=== PATIENT | female | born 1985 | race American Indian/Alaskan Native ===

== ENCOUNTER 2019-09-08 20:41 | Emergency (ER) | payer MEDICAID ==
[2019-09-08 22:44] VITALS: BP 108/80
[2019-09-09 00:40] LABS: Bacteria,Urine 2+ /HPF (Negative); Bilirubin,Urine NEG (Negative); Blood,Urine NEG (Negative); Color,Urine Yellow (Yellow); Mucus,Urine 3+ /HPF; Protein,Urine <15 mg/dL mg/dL (Negative)
== END 2019-09-09 02:00 | disposition left against medical advice (07) ==
LOC: ED 20:41
DX: N89.8 Other specified noninflammatory disorders of vagina (principal); Z53.21 Procedure and treatment not carried out due to patient leaving prior to being seen by health care provider
CPT/HCPCS: 81001; 87076; 87086; 87186

== ENCOUNTER 2020-02-10 10:08 | Emergency (ER) | payer MEDICAID ==
[2020-02-10 11:03] LABS: Hematocrit 37.3 % (30.3-42.9); Hemoglobin 12.4 gm/dl (10.1-14.3); Mean Corpuscular HGB Conc 33 % (30-34); Mean Corpuscular Volume 98 fl (79-97); Platelet Count 258 K/mm3 (140-440); Red Blood Count 3.79 M/mm3 (3.65-5.03); Red Cell Distribution Width 13.4 % (13.2-15.2)
[2020-02-10 11:15] LABS: Alanine Aminotransferase 8 units/L (7-56); Albumin 3.9 g/dL (3.9-5); BUN/Creatinine Ratio 18; Blood Urea Nitrogen 9 mg/dL (7-17); Calcium 8.4 mg/dL (8.4-10.2); Hemolysis Index 8
[2020-02-10 11:31] LABS: Bilirubin,Urine NEG (Negative); Blood,Urine LG (Negative); Color,Urine Amber (Yellow); Mucus,Urine 3+ /HPF; Protein,Urine <15 mg/dL mg/dL (Negative)
[2020-02-10 11:35] LABS: RBC,Urine > 182.0 /HPF (0.0-6.0)
[2020-02-10 12:04] LABS: Basophils % (Manual) 0 % (0.0-1.8); Large Platelets Few; Platelet Estimate Consistent w Auto; RBC Morphology Normal; Total Cells Counted 100
--- NOTE | 2020-02-10 13:34 | Emergency Department Report ---
ED Female HPI - General Chief complaint: Abdominal Pain Stated complaint: ABD PAIN, BLEEDING Time Seen by Provider: 02/10/20 12:28 Source: patient Mode of arrival: Ambulatory Limitations: No Limitations - History of Present Illness Initial comments: This is a 34-year-old female with no prior medical history who presents to the ED complaining of lower pelvic cramping with vaginal bleeding that started today. Patient states that it feels like a heavy menstrual cycle but she had a menstrual cycle about 2 weeks ago. She denies nausea vomiting or diarrhea or abdominal pain - Related Data Previous Rx's Medication Instructions Recorded Last Taken Type HYDROcodone/APAP 5-325 [[place] 1 each PO Q6HR PRN #14 tablet 03/12/16 Unknown Rx 5/325] Ibuprofen [Motrin 800 MG tab] 800 mg PO Q8HR PRN #20 tablet 03/12/16 Unknown Rx Allergies Allergy/AdvReac Type Severity Reaction Status Date / Time No Known Allergies Allergy Unverified 03/12/16 15:43 ED Review of Systems ROS: Stated complaint: ABD PAIN, BLEEDING Other details as noted in HPI Comment: All other systems reviewed and negative ED Past Medical Hx - Past Medical History Previous Medical History?: No Additional medical history: 1st degree heart block. syncope - Surgical History Past Surgical History?: No - Social History Smoking Status: Never Smoker - Medications Home Medications: Home Medications Medication Instructions Recorded Confirmed Last Taken Type HYDROcodone/APAP 5-325 [[place] 1 each PO Q6HR PRN #14 tablet 03/12/16 Unknown Rx 5/325] Ibuprofen [Motrin 800 MG tab] 800 mg PO Q8HR PRN #20 tablet 03/12/16 Unknown Rx ED Physical Exam - General Limitations: No Limitations General appearance: alert, in no apparent distress - Head Head exam: Present: atraumatic, normocephalic - Eye Eye exam: Present: normal appearance - ENT ENT exam: Present: mucous membranes moist - Neck Neck exam: Present: normal inspection - Respiratory Respiratory exam: Present: normal lung sounds bilaterally. Absent: respiratory distress - Cardiovascular Cardiovascular Exam: Present: regular rate, normal rhythm. Absent: systolic murmur, diastolic murmur, rubs, gallop - GI/Abdominal GI/Abdominal exam: Present: soft, normal bowel sounds - Extremities Exam Extremities exam: Present: normal inspection - Back Exam Back exam: Present: normal inspection - Neurological Exam Neurological exam: Present: alert, oriented X3 - Psychiatric Psychiatric exam: Present: normal affect, normal mood - Skin Skin exam: Present: warm, dry, intact, normal color. Absent: rash ED Course Vital Signs 02/10/20 02/10/20 02/10/20 10:27 14:00 14:17 Temperature 98.5 F 97.8 F Pulse Rate 60 57 L Respiratory 19 17 18 Rate Blood Pressure 115/68 112/73 O2 Sat by Pulse 100 100 99 Oximetry ED Medical Decision Making - Lab Data Result diagrams: 02/10/20 10:36 02/10/20 10:36 Laboratory Last Values WBC 3.2 K/mm3 (4.5-11.0) L 02/10/20 10:36 RBC 3.79 M/mm3 (3.65-5.03) 02/10/20 10:36 Hgb 12.4 gm/dl (10.1-14.3) 02/10/20 10:36 Hct 37.3 % (30.3-42.9) 02/10/20 10:36 MCV 98 fl (79-97) H 02/10/20 10:36 MCH 33 pg (28-32) H 02/10/20 10:36 MCHC 33 % (30-34) 02/10/20 10:36 RDW 13.4 % (13.2-15.2) 02/10/20 10:36 Plt Count 258 K/mm3 (140-440) 02/10/20 10:36 Add Manual Diff Complete 02/10/20 10:36 Total Counted 100 02/10/20 10:36 Seg Neutrophils % Hat Trimmer 02/10/20 10:36 Seg Neuts % (Manual) 30.0 % (40.0-70.0) L 02/10/20 10:36 Band Neutrophils % 0 % 02/10/20 10:36 Lymphocytes % (Manual) 57.0 % (13.4-35.0) H 02/10/20 10:36 Reactive Lymphs % (Man) 1.0 % 02/10/20 10:36 Monocytes % (Manual) 9.0 % (0.0-7.3) H 02/10/20 10:36 Eosinophils % (Manual) 3.0 % (0.0-4.3) 02/10/20 10:36 Basophils % (Manual) 0 % (0.0-1.8) 02/10/20 10:36 Metamyelocytes % 0 % 02/10/20 10:36 Myelocytes % 0 % 02/10/20 10:36 Promyelocytes % 0 % 02/10/20 10:36 Blast Cells % 0 % 02/10/20 10:36 Nucleated RBC % Not Reportable 02/10/20 10:36 Seg Neutrophils # Man 1.0 K/mm3 (1.8-7.7) L 02/10/20 10:36 Band Neutrophils # 0.0 K/mm3 02/10/20 10:36 Lymphocytes # (Manual) 1.8 K/mm3 (1.2-5.4) 02/10/20 10:36 Abs React Lymphs (Man) 0.0 K/mm3 02/10/20 10:36 Monocytes # (Manual) 0.3 K/mm3 (0.0-0.8) 02/10/20 10:36 Eosinophils # (Manual) 0.1 K/mm3 (0.0-0.4) 02/10/20 10:36 Basophils # (Manual) 0.0 K/mm3 (0.0-0.1) 02/10/20 10:36 Metamyelocytes # 0.0 K/mm3 02/10/20 10:36 Myelocytes # 0.0 K/mm3 02/10/20 10:36 Promyelocytes # 0.0 K/mm3 02/10/20 10:36 Blast Cells # 0.0 K/mm3 02/10/20 10:36 WBC Morphology Not Reportable 02/10/20 10:36 Hypersegmented Neuts Not Reportable 02/10/20 10:36 Hyposegmented Neuts Not Reportable 02/10/20 10:36 Hypogranular Neuts Not Reportable 02/10/20 10:36 Smudge Cells Not Reportable 02/10/20 10:36 Toxic Granulation Not Reportable 02/10/20 10:36 Toxic Vacuolation Not Reportable 02/10/20 10:36 Dohle Bodies Not Reportable 02/10/20 10:36 Pelger-Huet Anomaly Not Reportable 02/10/20 10:36 Lydia Rods Not Reportable 02/10/20 10:36 Platelet Estimate Consistent w auto 02/10/20 10:36 Clumped Platelets Not Reportable 02/10/20 10:36 Plt Clumps, EDTA Not Reportable 02/10/20 10:36 Large Platelets Few 02/10/20 10:36 Giant Platelets Not Reportable 02/10/20 10:36 Platelet Satelliting Not Reportable 02/10/20 10:36 Plt Morphology Comment Not Reportable 02/10/20 10:36 RBC Morphology Normal 02/10/20 10:36 Dimorphic RBCs Not Reportable 02/10/20 10:36 Polychromasia Not Reportable 02/10/20 10:36 Hypochromasia Not Reportable 02/10/20 10:36 Poikilocytosis Not Reportable 02/10/20 10:36 Anisocytosis Not Reportable 02/10/20 10:36 Microcytosis Not Reportable 02/10/20 10:36 Macrocytosis Not Reportable 02/10/20 10:36 Spherocytes Not Reportable 02/10/20 10:36 Pappenheimer Bodies Not Reportable 02/10/20 10:36 Sickle Cells Not Reportable 02/10/20 10:36 Target Cells Not Reportable 02/10/20 10:36 Tear Drop Cells Not Reportable 02/10/20 10:36 Ovalocytes Not Reportable 02/10/20 10:36 Helmet Cells Not Reportable 02/10/20 10:36 [place] Bodies Not Reportable 02/10/20 10:36 Norman Rings Not Reportable 02/10/20 10:36 Bertha Cells Not Reportable 02/10/20 10:36 Bite Cells Not Reportable 02/10/20 10:36 Crenated Cell Not Reportable 02/10/20 10:36 Elliptocytes Not Reportable 02/10/20 10:36 Acanthocytes (Spur) Not Reportable 02/10/20 10:36 Rouleaux Not Reportable 02/10/20 10:36 Hemoglobin C Crystals Not Reportable 02/10/20 10:36 Schistocytes Not Reportable 02/10/20 10:36 Malaria parasites Not Reportable 02/10/20 10:36 Anton Bodies Not Reportable 02/10/20 10:36 Hem Pathologist Commnt No 02/10/20 10:36 Sodium 142 mmol/L (137-145) 02/10/20 10:36 Potassium 4.0 mmol/L (3.6-5.0) 02/10/20 10:36 Chloride 105.6 mmol/L (98-107) 02/10/20 10:36 Carbon Dioxide 26 mmol/L (22-30) 02/10/20 10:36 Anion Gap 14 mmol/L 02/10/20 10:36 BUN 9 mg/dL (7-17) 02/10/20 10:36 Creatinine 0.5 mg/dL (0.7-1.2) L 02/10/20 10:36 Estimated GFR > 60 ml/min 02/10/20 10:36 BUN/Creatinine Ratio 18 % 02/10/20 10:36 Glucose 84 mg/dL (65-100) 02/10/20 10:36 Calcium 8.4 mg/dL (8.4-10.2) 02/10/20 10:36 Total Bilirubin 0.40 mg/dL (0.1-1.2) 02/10/20 10:36 AST 15 units/L (5-40) 02/10/20 10:36 ALT 8 units/L (7-56) 02/10/20 10:36 Alkaline Phosphatase 72 units/L (35-129) 02/10/20 10:36 Total Protein 7.0 g/dL (6.3-8.2) 02/10/20 10:36 Albumin 3.9 g/dL (3.9-5) 02/10/20 10:36 Albumin/Globulin Ratio 1.3 % 02/10/20 10:36 Urine Color Nayla (Yellow) 02/10/20 11:13 Urine Turbidity Clear (Clear) 02/10/20 11:13 Urine pH 6.0 (5.0-7.0) 02/10/20 11:13 Ur Specific [place] 1.023 (1.003-1.030) 02/10/20 11:13 Urine Protein <15 mg/dl mg/dL (Negative) 02/10/20 11:13 Urine Glucose (UA) Neg mg/dL (Negative) 02/10/20 11:13 Urine Ketones Neg mg/dL (Negative) 02/10/20 11:13 Urine Blood Lg (Negative) 02/10/20 11:13 Urine Nitrite Neg (Negative) 02/10/20 11:13 Urine Bilirubin Neg (Negative) 02/10/20 11:13 Urine Urobilinogen 4.0 mg/dL (<2.0) 02/10/20 11:13 Ur Leukocyte Esterase Neg (Negative) 02/10/20 11:13 Urine WBC (Auto) 1.0 /HPF (0.0-6.0) 02/10/20 11:13 Urine RBC (Auto) > 182.0 /HPF (0.0-6.0) 02/10/20 11:13 U Epithel Cells (Auto) 1.0 /HPF (0-13.0) 02/10/20 11:13 Urine Mucus 3+ /HPF 02/10/20 11:13 - Medical Decision Making This 34-year-old female presents with bleeding in between cycles. Vital signs are normal, she is in no acute distress All labs are within normal limits. Discussed with patient to follow-up with [facility] Critical care attestation.: If time is entered above; I have spent that time in minutes in the direct care of this critically ill patient, excluding procedure time. ED Disposition Clinical Impression: Menometrorrhagia Disposition: - TO HOME OR SELFCARE Is pt being admited?: No Does the pt Need Aspirin: No Condition: Stable Instructions: Abdominal Pain (ED), Menorrhagia (ED) Additional Instructions: Make sure to follow up with the primary care physician as discussed. Take all your medications as you've been prescribed. If you have any worsening symptoms or develop new symptoms please return to ED immediately. Referrals: AMELIA GAMBLE MD [Primary Care Provider] - 3-5 Days Forms: Work/School Release Form(ED) Time of Disposition: 13:38
[2020-02-10 14:02] VITALS: BP 112/73
== END 2020-02-10 14:08 | disposition home or self-care (01) ==
LOC: ED 10:08
DX: N92.0 Excessive and frequent menstruation with regular cycle (principal); Z79.1 Long term (current) use of non-steroidal anti-inflammatories (NSAID); Z79.899 Other long term (current) drug therapy
CPT/HCPCS: 36415; 80053; 81001; 85007; 85025

== ENCOUNTER 2020-04-21 22:30 | Emergency (ER) | payer MEDICAID ==
[2020-04-22 02:06] VITALS: BP 133/68
== END 2020-04-22 02:10 | disposition left against medical advice (07) ==
LOC: ED 22:30
DX: H57.12 Ocular pain, left eye (principal); Z53.21 Procedure and treatment not carried out due to patient leaving prior to being seen by health care provider

== ENCOUNTER 2021-09-07 18:55 | Emergency (ER) | payer MEDICAID ==
--- NOTE | 2021-09-08 03:25 | Emergency Department Report ---
ED Dysuria HPI - HPI Chief Complaint: Urogenital-Female Stated Complaint: UTI Time Seen by Provider: 09/08/21 03:19 Duration: 2 Days Location of Discomfort: Suprapubic Severity: Moderate Symptoms: Dysuria: Yes, Frequency: Yes, Suprapubic Pain: Yes, Flank Pain: No, Fever: No, Hematuria: No, Abdominal Pain: No, Previous UTI's: Yes ED Review of Systems ROS: Stated complaint: UTI Other details as noted in HPI Comment: All other systems reviewed and negative ED Past Medical Hx - Past Medical History Previous Medical History?: No Additional medical history: 1st degree heart block. syncope - Surgical History Past Surgical History?: No - Social History Smoking Status: Never Smoker Substance Use Type: Alcohol - Medications Home Medications: Home Medications Medication Instructions Recorded Confirmed Last Taken Type HYDROcodone/APAP 5-325 [[place] 1 each PO Q6HR PRN #14 tablet 03/12/16 Unknown Rx 5/325] Ibuprofen [Motrin 800 MG tab] 800 mg PO Q8HR PRN #20 tablet 03/12/16 Unknown Rx Nitrofurantoin [place]/M-[place] 100 mg PO Q12HR #20 capsule 09/08/21 Unknown Rx [Macrobid CAP] Phenazopyridine [Pyridium] 200 mg PO TID #9 tab 09/08/21 Unknown Rx Dysuria Exam - Exam General: Vital signs noted. No distress. Alert and acting appropriately. Exam: No Moist Mucous Membranes, No CVA Tenderness, No Abdominal Tenderness, No Rigidity or Guarding Exam: suprapubic tenderness. no CVA Tenderness. ED Course Vital Signs 09/07/21 21:09 Temperature 98.0 F Pulse Rate 65 Respiratory 18 Rate Blood Pressure 113/43 O2 Sat by Pulse 100 Oximetry Critical care attestation.: If time is entered above; I have spent that time in minutes in the direct care of this critically ill patient, excluding procedure time. ED Disposition Clinical Impression: UTI (urinary tract infection) Disposition: 01 HOME / SELF CARE / HOMELESS Is pt being admited?: No Does the pt Need Aspirin: No Condition: Stable Instructions: Urinalysis Test, Urinary Tract Infection, Adult Prescriptions: Nitrofurantoin [place]/M-Cryst [Macrobid CAP] 100 mg PO Q12HR #20 capsule Phenazopyridine [Pyridium] 200 mg PO TID #9 tab Referrals: [facility] [Provider Group] - 3-5 Days PRIMARY CARE,MD [Primary Care Provider] - 3-5 Days
[2021-09-08] MEDS ORDERED: ACETAMINOPEN W/CODEINE 120-12MG ORAL LIQD 5 ML PO STA (03:26)
[2021-09-08] MEDS ORDERED: HYDROcodone/ACETAMINOPHEN 5-325 MG TAB PO STA (03:26)
[2021-09-08] MEDS ORDERED: levoFLOXacin 500 MG TAB PO STA (03:26)
[2021-09-08 04:04] VITALS: BP 140/70
== END 2021-09-08 03:50 | disposition home or self-care (01) ==
LOC: ED 18:55
DX: N39.0 Urinary tract infection, site not specified (principal); F10.20 Alcohol dependence, uncomplicated
CPT/HCPCS: 99282

== ENCOUNTER 2022-02-12 20:12 | Emergency (ER) | payer MEDICAID | END 2022-02-12 23:01 | disposition left against medical advice (07) | LOC: ED 20:12 | DX: B37.9 Candidiasis, unspecified (principal); Z53.21 Procedure and treatment not carried out due to patient leaving prior to being seen by health care provider ==